=== PATIENT | female | born 1945 | race Caucasian/White ===

== ENCOUNTER 2022-06-23 09:48 | Day surgery (SDC) | payer MEDICARE, BC ==
[2022-06-23] VITALS (11 sets, daily range): BP systolic 111–160; BP diastolic 48–77
[~2022-06-23] VITALS: Ht 160 cm; Wt 84.9 kg
[2022-06-23] MEDS ORDERED: diphenhydrAMINE 25mg capsule PO PRN (10:10)
[2022-06-23] MEDS ORDERED: normal saline 1,000 ML IV SCH (10:10)
[2022-06-23] MEDS ORDERED: ROSU40TA22 PO (10:23)
[2022-06-23] MEDS ORDERED: METO-395 PO (10:23)
[2022-06-23] MEDS ORDERED: LISI5TAB22 PO (10:23)
[2022-06-23] MEDS ORDERED: CLOP75TA34 PO (10:23)
[2022-06-23] MEDS ORDERED: ASPI-1071 PO (10:23)
[2022-06-23] MEDS ORDERED: FURO20TA4 PO (10:23)
[2022-06-23] MEDS ORDERED: vitamin d3 (10:24)
[2022-06-23] MEDS ORDERED: CYAN30003 SL (10:25)
[2022-06-23 10:52] LABS: BASOPHILS % (AUTO) 0.8 % (0-1); EOSINOPHILS # (AUTO) 0.1 X10'3 (0-0.9); EOSINOPHILS % (AUTO) 1.8 % (0-6); HEMATOCRIT 35.7 % (35.0-45.0); HEMOGLOBIN 12.1 g/dl (12.0-16.0); LYMPHOCYTES # (AUTO) 1.5 X10'3 (1.1-4.8); MEAN CORPUSCULAR HEMOGLOBIN 31.4 PG (27.0-31.0); MEAN CORPUSCULAR HGB CONC 33.9 g/dL (33.0-36.5); MEAN CORPUSCULAR VOLUME 92.6 FL (78-98); MONOCYTES # (AUTO) 0.8 X10'3 (0-0.9); MONOCYTES % (AUTO) 12.4 % (2-12); NEUTROPHILS # (AUTO) 3.7 X10'3 (1.8-7.7); PLATELET COUNT 228 X10'3 (140-440); RED BLOOD COUNT 3.86 X10'6 (4.20-5.60); RED CELL DISTRIBUTION WIDTH 13.6 % (11.5-14.5); WHITE BLOOD COUNT 6.2 X10'3 (4.5-11.0)
[2022-06-23 11:13] LABS: ALBUMIN 4.1 G/DL (3.4-5.0); ANION GAP 12 (8-16); BLOOD UREA NITROGEN 13 MG/DL (7-18); BUN/CREATININE RATIO 10.7 (6.6-38.0); CALCIUM 10.4 MG/DL (8.5-10.1); CHLORIDE 107 MMOL/L (99-107); CREATININE 1.21 MG/DL (0.40-0.90); GLUCOSE 99 MG/DL (70-104); MAGNESIUM 2.3 MG/DL (1.5-2.4); POTASSIUM 4.5 MMOL/L (3.5-5.1); SODIUM 146 MMOL/L (135-145); TOTAL CARBON DIOXIDE 27.4 MMOL/L (24-32); eGFR 43 ML/MIN
[2022-06-23] MEDS ORDERED: nitroGLYCERIN-Tridil 50MG/D5W 250 ML IV ONE (11:20)
[2022-06-23] MEDS ORDERED: verapamil 2.5 mg/ml inj IV ONE (11:20)
[2022-06-23] MEDS ORDERED: LIDOcaine 1%/PF 5ML 10 MG/ML VIAL ONE (11:21)
[2022-06-23] MEDS ORDERED: iohexol 350MG/ML 100ml bottle IV ONE ×2 (11:21→13:35)
[2022-06-23] MEDS ORDERED: heparin 1,000unit/ml 10ml vial 10 ML ONE ×2 (11:21→13:48)
[2022-06-23] MEDS ORDERED: midazolam 1 mg/ML 2ml injection ONE ×3 (11:21→13:58)
[2022-06-23] MEDS ORDERED: fentaNYL/PF 50MCG/1 ML 2ML syringe ONE (11:21)
[2022-06-23] MEDS ORDERED: clopidogrel 300mg tablet ONE (14:18)
--- NOTE | 2022-06-23 14:23 | NUR ---
Bedside report received from RICARDO Parra. 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 Vital signs stable. Vasc band to right radial artery. Pulse intact. No signs of bleeding. Patient denies chest pain.
== END 2022-06-23 19:00 | disposition home or self-care (01) ==
LOC: SSTAY O 09:48
PROVIDERS: ATTEND Internal Medicine Cardiovascular Disease
DX: I25.110 Atherosclerotic heart disease of native coronary artery with unstable angina pectoris (principal); I10 Essential (primary) hypertension; E78.5 Hyperlipidemia, unspecified; I27.20 Pulmonary hypertension, unspecified; G47.30 Sleep apnea, unspecified; Z98.890 Other specified postprocedural states; Z82.49 Family history of ischemic heart disease and other diseases of the circulatory system; Z95.5 Presence of coronary angioplasty implant and graft; Z79.899 Other long term (current) drug therapy
CPT/HCPCS: 36415; 80048; 83735; 85025; 85610; 93005; 93458; 99152; 99153; C1725; C1751; C1769; C1874; C1894; C9600; J1644; J2250; J3010; J3490; J7030; Q0163; Q9967; A4620; A6258; A6449